=== PATIENT | male | born 1970 | race Caucasian/White ===

== ENCOUNTER → 2024-06-16 13:56 | Outpatient (BNVA) | payer MEDICAID, SELFPAY | PROVIDERS: Visit Provider Student in an Organized Health Care Education/Training Program | DX: M75.101 Unspecified rotator cuff tear or rupture of right shoulder, not specified as traumatic (principal); M75.41 Impingement syndrome of right shoulder; M75.21 Bicipital tendinitis, right shoulder; S49.91XA Unspecified injury of right shoulder and upper arm, initial encounter; M19.019 Primary osteoarthritis, unspecified shoulder; X50.9XXA Other and unspecified overexertion or strenuous movements or postures, initial encounter | CPT/HCPCS: 73030 ==

== ENCOUNTER 2024-07-20 11:21 | Day surgery (SDC) | payer MEDICAID, SELFPAY ==
[2024-07-20] VITALS (10 sets, daily range): BP systolic 160–178; BP diastolic 88–107; PULSE 70–90; RESP 16–18; TEMP 36.1; O2SAT 93–98; BMI 34.4
[2024-07-20 12:10] LABS: Glucose Point of Care 147 mg/dL (70-110)
[2024-07-20] MEDS: ketorolac 30 mg/mL INJ IVP (12:10)
[2024-07-20] MEDS: sodium chloride 0.9% 1,000 ML 30 ML IV (12:10)
[2024-07-20] MEDS: acetaminophen 1,000 MG/100 ML PIGGYBACK 400 MG IV (12:10)
[2024-07-20] MEDS: scopolamine 1 mg PATCH 1 PATCH TRANSDERMA (12:11)
--- NOTE | 2024-07-20 12:54 | PC.NURSE ---
1240, time out performed, Patient placed on 2lnc and placed on minitor using ultrasound guidance right shoulder block performed, 20 ml 0.5% ropivicaine injected.patient tolerated well.
--- NOTE | 2024-07-20 12:54 | ANES.PREANE2 ---
Pre-Anesthetic Assessment Height/Weight: Height 1.7 m Weight 99.79 kg BP O2 Del Method 165/107 Room Air 07/20/24 12:11 07/20/24 12:01 Operation Date: 07/20/24 13:10 Proposed Procedures p shoulder diagnostic and surgical arthroscopy(Right) - Max Victor, DO s Subacromial Decompression(Right) - Max Whatleyatt DO s AC Joint Resection(Right) - Max Whatleyatt DO s Rotator Cuff Repair - Arthroscopy vs debridement(Right) - Max Whatleyatt DO s Possible biceps tenotomy versus tenodesis(Right) - Max Victor DO Familial anesthetic complications: None Was Beta Sonya taken within 24 hours: N/A Was Clonidine taken within 24 hours: N/A Last intake: Intake Last Liquid Date 07/19/24 Last Liquid Time 22:00 Last Solid Date 07/19/24 Last Solid Time 19:30 Social No alcohol and No tobacco Exam alert, oriented x 3, clear to auscultation bilaterally and regular rate & rhythm Airway Mallampati: Class I Dentition: other (none) CV/HEM Hypertension Metabolic Diabetes Mellitus and Hyperlipidemia Anesthetic Plan ASA status: 3 Anesthesia: General and Regional (specify below) Risk of > 500 ml blood loss (7ml/kg in children): No Medications/Allergies Home Medications ?Medication ?Instructions ?Recorded ?Confirmed ?Last Taken ?Type aspirin 81 mg tablet,delayed 81 mg PO DAILY 06/16/24 07/16/24 07/18/24 History release atorvastatin 20 mg tablet (Lipitor) 20 mg PO DAILY 06/16/24 07/16/24 07/18/24 History griseofulvin microsize 500 mg 500 mg PO Q12H 06/16/24 07/16/24 07/18/24 History tablet lisinopril 10 mg tablet 10 mg PO DAILY 06/16/24 07/16/24 07/11/24 History metformin 500 mg tablet 500 mg PO DAILY 06/16/24 07/16/24 07/18/24 History hydrocodone 5 mg-acetaminophen 325 1 tab PO Q6H PRN pain 5 days #20 07/20/24 Unknown Rx mg tablet tabs Allergies Allergy/AdvReac Type Severity Reaction Status Date / Time codiene Allergy depression Uncoded 06/16/24 14:03 Current Medications Generic Name Dose Route Start Last Admin Trade Name Freq PRN Reason Stop Dose Admin Sodium Chloride 1,000 mls @ 30 mls/hr 07/20/24 11:45 07/20/24 12:10 Sodium Chloride 0.9% IV 07/21/24 11:44 30 mls/hr .Q24H OTILIA Administration PFSH Anesthesia Social History (Updated 06/16/24 @ 14:05 by Amairani Sutherland LPN) Smoking and tobacco/nicotine status: never used tobacco/nicotine Marital status: Data Anesthesia Cardiac Studies: No Data to Display
--- NOTE | 2024-07-20 12:54 | ANES.PROC ---
Anesthesia Procedures Procedure/Date: 07/20/24 Nerve Block ^: Nerve Block 1: Main Anesthesia: general anesthesia Time Out Performed: Yes Consent: requested by attending/covering physician, from patient, from other, risks and benefits reviewed and patient agrees to proceed Nerve block location: interscalene (R) Anesthesia monitors applied: pulse oximetry, EKG, BP cuff and oxygen Nerve block position: semi sitting Anesthetic Used: ropivicaine 0.5% (20 ml) and with decadron (4 mg) Ultrasound used to: recognize landmarks, visualize and ID brachial plexus, in supraclavicular region and visualize and ID interscalene groove Nerve Stimulator Used?: No Interscalene/Femoral BLK: 2 stimuplex 22 g needle used for position and inplane approach, visualize local anesthetic spread and no vascular puncture identified Patient Tolerated Procedure: well Complications: none
--- NOTE | 2024-07-20 13:16 | W.PM.OPSFHP ---
Same Day Surgery H&P Indication for Procedure/HPI DATE OF PROCEDURE: July 20, 2024 CHIEF COMPLAINT/INDICATIONFOR SURGICAL PROCEDURE: Right shoulder rotator cuff tear, AC joint arthritis rotator cuff impingement, biceps tendinitis PREOP DIAGNOSIS: Right shoulder rotator cuff tear, AC joint arthritis rotator cuff impingeme PLANNED PROCEDURE: Operation Date: 07/20/24 13:10 Proposed Procedures p shoulder diagnostic and surgical arthroscopy(Right) - Max Victor, DO s Subacromial Decompression(Right) - Max Victor, DO s AC Joint Resection(Right) - Max Victor, DO s Rotator Cuff Repair - Arthroscopy vs debridement(Right) - Max Victor, DO s Possible biceps tenotomy versus tenodesis(Right) - Max Victor, DO Medications/Allergies* Home Medications ?Medication ?Instructions ?Recorded ?Confirmed ?Type aspirin 81 mg tablet,delayed 81 mg PO DAILY 06/16/24 07/16/24 History release atorvastatin 20 mg tablet (Lipitor) 20 mg PO DAILY 06/16/24 07/16/24 History griseofulvin microsize 500 mg 500 mg PO Q12H 06/16/24 07/16/24 History tablet lisinopril 10 mg tablet 10 mg PO DAILY 06/16/24 07/16/24 History metformin 500 mg tablet 500 mg PO DAILY 06/16/24 07/16/24 History Allergies/Adverse Reactions Allergy/AdvReac Type Severity Reaction Status Date / Time codiene Allergy depression Uncoded 06/16/24 14:03 Current Medications: Generic Name Dose Route Start Last Admin Trade Name Freq PRN Reason Stop Dose Admin Sodium Chloride 1,000 mls @ 30 mls/hr 07/20/24 11:45 07/20/24 12:10 Sodium Chloride 0.9% IV 07/21/24 11:44 30 mls/hr .Q24H OTILIA Administration Pertinent History/Comorbid Conditions* Social History Smoking and tobacco/nicotine status: never used tobacco/nicotine Marital status: Pertinent Exam Findings alert, oriented x 3, operative site marked and procedure specific exam findings Please refer to detailed orthopedic examination on 06/16/2024 listed below: RIght Shoulder exam: C-Spine ROM: Normal Spurlings: Negative Tender AC with biceps groove No posterior TTP ROM: Passive 180 degrees Active 90 degrees TTP Internal Rotation External Rotation pain 4/5 strength O'Briens: Jobes: Positive with weakness 4/5 [place]ima Impingement:Positive Speeds Test: Positive Crossover/Neers test Positive Positive drop arm test Negative Tinels at the wrist Negative Median Compression test Recommendations Risks and benefits of procedure reviewed and Patient/family agree to proceed Surgery/Procedure today Other Plans: Plan to proceed to the OR today for right shoulder diagnostic and surgical arthroscopy with subacromial decompression, AC joint resection, rotator cuff debridement versus repair, possible biceps tenotomy versus tenodesis. Patient once again understands the ins and outs procedure the risk benefits complication alternatives surgery and through shared decision make elects proceed with surgical invention. All questions answered at this time. Coding Level of Care Code Acute Code for Chg Fwd
[2024-07-20] MEDS: ceFAZolin 2,000 MG in sodium chloride 0.9% (plus) 50 ML 100 MG IV (13:33)
[2024-07-20] MEDS: EPINEPHrine 1 mg/mL INJ 2 MG XX (14:21)
--- NOTE | 2024-07-20 15:15 | P.BOP_ITS ---
Date of Procedure: 07/20/2024 Surgeon: Max Victor DO Director [facility](s): Karthik Victor PA-C Procedure(s) performed: Right shoulder diagnostic and surgical arthroscopy with rotator cuff repair (medium?large) Right shoulder diagnostic and surgical arthroscopy with biceps tenodesis Right shoulder diagnostic and surgical arthroscopy with labral debridement Right shoulder diagnostic and surgical arthroscopy with subacromial decompression (bursectomy/acromioplasty) Right shoulder diagnostic and surgical arthroscopy with AC joint resection (distal clavicle excision) Findings of the procedure(s): Patient at this point time found to have a medium large rotator cuff tear as well as biceps tendinitis inflammation tearing as well as unstable bicep tendon anchor underwent bicep tenodesis and rotator cuff repair also underwent subacromial decompression AC resection as well as labral debridement. Patient tolerated procedure well without issues or complications taken back to PACU stable condition. Estimated blood loss: 10 mL Specimen(s) removed: None Post-operative diagnosis: Right shoulder rotator cuff tear (medium?large), biceps tendinitis/superior labral tearing and unstable bicep anchor, circumferential labral fraying, subacromial impingement, AC joint arthritis
--- NOTE | 2024-07-20 15:17 | P.OP_ITS ---
Operative Report Date of procedure: July 20, 2024 Surgeon: Max Victor DO Youth Liaison Officer: Karthik Victor PA-C: PA was necessary for assistance in this case with shoulder positioning to execute the procedure, assistance with instrumentation, as well as implant fixation when necessary, assist with wound closure and dressing application. Procedure: Preoperative diagnosis: Right shoulder rotator cuff tear, AC joint arthritis rotator cuff impingement, biceps tendinitis Post-op diagnosis: Right shoulder rotator cuff tear (medium?large), biceps tendinitis/superior labral tearing and unstable bicep anchor, circumferential labral fraying, subacromial impingement, AC joint arthritis Procedure done: Right shoulder diagnostic and surgical arthroscopy with rotator cuff repair (medium?large) Right shoulder diagnostic and surgical arthroscopy with biceps tenodesis Right shoulder diagnostic and surgical arthroscopy with labral debridement Right shoulder diagnostic and surgical arthroscopy with subacromial decompression (bursectomy/acromioplasty) Right shoulder diagnostic and surgical arthroscopy with AC joint resection (distal clavicle excision) Surgeon: Max Victor DO Estimated blood loss: 10mL IV fluids: See anesthesia record Implants: Arthrex 4.75 loop and tack biceps tenodesis kit Arthrex 4.75 speed bridge implant system with scorpion for rotator cuff repair Complications: None Condition: stable Disposition: same day Brief History: Patient been seen and worked up in the outpatient setting for?right?shoulder?pain.? Pt had an MRI which showed findings of Medium in size retracted full-thickness rotator cuff tear as well as subacromial impingement. Also x-rays demonstrate AC joint arthritis. Patient's failed conservative treatment and has weakness.? We talked about treatment options far as nonoperative and operative intervention. We talked about risk benefits complication alternatives surgical nonsurgical treatment options.? Understanding risk of surgery he agrees to proceed with surgical intervention. Please refer to previous office visit for detailed discussion about treatment options as patient does have rotator cuff tear rotator cuff impingement syndrome as well as right shoulder biceps tendinitis and AC joint arthritis. All questions have been answered at this time.? Patient elects proceed with surgery and consent obtained in the preoperative holding area for Right shoulder diagnostic and surgical arthroscopy, Subacromial Decompression, Acromioclavicular Joint Resection,Rotator Cuff Repair versus Debridement, Possible biceps tenotomy versus tenodesis. Procedure: Patient seen evaluated in the preoperative holding area.? Consent reviewed and signed with patient.? Once again reviewed patient's MRI results as well as? planned surgical intervention.? Correct extremity marked.? Patient seen evaluated by anesthesia department received regional anesthesia.? Once ready for surgery was taken back to the operative suite.? Patient then subsequently underwent anesthesia per the anesthesia department was transported onto the OR table.? Patient was then placed into a lateral decubitus position with a beanbag and was appropriately secured to the bed.? All bony prominences well-padded.? Patient then had the?right?upper extremity was then prepped and draped in standard orthopedic fashion.? Patient received appropriate preoperative antibiotics.? Final timeout performed. The?right?upper extremity was then held in hanging from traction utilizing sterile technique.? Next started with standard diagnostic and surgical arthroscopy with posterior portal position introduced arthroscope into the glenohumeral joint.? Visualized the glenohumeral joint I then introduced a spinal needle within the rotator cuff interval to confirm appropriate anterior portal placement.? Once this was confirmed I then made my small incision and then introduced my arthroscopic shaver into the glenohumeral joint.? After flushing the joint fluid, was clearly evident patient had biceps tendon tearing/tendinitis as well as Superior labral tear. Patient had appreciable unstable biceps anchor most pronounced in the superior labrum. Given there appears to be healthy intra-articular tendon plan was for an intra-articular biceps tenodesis at the superior portion as it enters the intertubercular groove. Thermal wand introduced into the rotator interval. I then release of the rotator interval to have appropriate visualization and the ability to perform biceps tenodesis. At this point I established a purple passport cannula which was introduced. Next I performed an Arthrex loop and tack biceps tenodesis. Passer was then made around the tendon luggage tag stitch around and then thru the tendon for Arthrex standard protocol, I then utilized a thermal wand to release the biceps tendon at the anchor to perform with tenotomy. I then loaded with suture onto an Arthrex 4.75 swivel lock suture anchor. A punch was then placed in appropriate position at the entry point into the intertubercular groove just superior to the subscapularis tendon. Punch was then introduced to the appropriate depth. The suture loaded on the swivel lock was then advanced held under appropriate tension and shoulder lock anchor was then advanced and had excellent fixation. Excess suture was then cut biceps tenodesis was complete. I then utilized a thermal wand to seal the edges of the superior labrum. Next I evaluated the subscapularis tendon which was intact and no evidence of tear. ?Next there was significant labral tearing at biceps anchor and circumferential.? ? I then subsequently utilized a a arthroscopic shaver and thermal wand to perform a labral debridement.? This point time I then visualized the glenohumeral joint.? The glenohumeral joint was found to have grade 1-2? chondromalacia throughout.? Axillary pouch was free of loose bodies from viewing the posterior portal.? Next a visualized the rotator cuff superiorly and there was found to be a medium size tearing of the supraspinatus tendon.? I utilized a spinal needle to john this location.?? This completed my work within the glenohumeral joint all fluid was suctioned free of the joint.? ?Next I reintroduced the arthroscope posteriorly.? And went to the subacromial space.? I established my lateral working portal at the site of which my spinal needle was marking of the rotator cuff tear.? Thermal wand was then introduced laterally and then I subsequently performed extensive bursectomy of the subacromial space.? Patient had a large anterior bone spur.? At this point time I proceeded with my AC joint resection thermal wand was used and track to the anterior edge of the acromion and then tracked all the way to the AC joint.? Once identified the AC joint this was very arthritic in nature.? Thermal wand was placed anteriorly to establish appropriate plane for AC joint resection.? Once appropriate margins and anterior inferior and anterior capsule was released I then introduced arthroscopic shaver and a bur and performed AC joint resection of both the acromion to cope plane at the AC joint and a distal clavicle resection was then performed totaling 1 cm in size and was confirmed.? This completed my AC joint resection and I then introduced the arthroscopic shaver laterally while continuing to view posteriorly.? I then performed an acromioplasty to complete my subacromial decompression prior to fixing the rotator cuff tear.? Next the arthroscopic shaver was then used previous spinal needle spot that is marked the medium size hold the rotator cuff. Patient was found to have a medium even the large size rotator cuff tear. This was of the supraspinatus rotator cuff tendon. This appears this would be amendable for a speed bridge double row technique. We then subsequently opened up Arthrex double row speed bridge implant system with 4.75 swivel locks to medial row anchor and a 2 lateral row anchor fixation. At this point in time and then introduced a shaver and ring curette to debride the rotator cuff footprint and decorticate the footprint in preparation for repair. Next I then made a small percutaneous incision first marking with a spinal needle via man's perpendicular angle directly over the medial row right off the articular margin for my medial row anchor positioning. Once SSI with this placement small stab incision and blunt probe and then subsequently inserted the punch. I then subsequently punched and placed two 4.75 swivel lock anchors 1 anteriorly and 1 posteriorly to span the width of the tear. These both had this wedged Arthrex suture tapes which were then spliced to correlate to 4 passes throughout the rotator cuff. At this point time I sequentially rasped past and then docked these out of the anterior portal utilizing an Arthrex scorpion these were passed sequential fashion from anterior to posterior fashion once all were passed I then had excellent excursion of this rotator cuff and subsequently grabbed sutures 1 and 3 loaded these on a 4.75 swivel lock and subsequently utilizing my thermal wand cleared the lateral aspect of the tuberosity for my lateral row anchor positioning once this was marked I then subsequently punched and then placed and secured a 4.75 swivel lock under satisfactory tension and pulled the anterior aspect of the rotator cuff complet torey down and over the prepped bone bed of the tuberosity back to its original origin. Next I then loaded the 2 and 4 sutures onto 4.75 swivel lock and then subsequently utilized punch and secured under appropriate tension on the 4.75 swivel lock from a posterior lateral anchor. At this point in time I then took the shoulder through range of motion and there was no evidence of failure the entire aspect of the rotator cuff now moved as a unit with the repair in place. This had excellent fixation and moved as a unit. As a result all excess sutures were then cut with arthroscopic suture cutter. Repair was found to be satisfactory?shoulder?was taken through range of motion and the repair moved as a unit with no evidence of loss of fixation. ?I then switched the arthroscope to the lateral portal to confirm this tension- free repair.? I took the?shoulder?through range of motion and the rotator cuff repair was stable and moved as a unit. ?Next I then introduced the arthroscopic shaver posteriorly to complete my subacromial decompression appropriate complaining all the way up to the lateral edge of the acromion.? This completed the surgery.? All fluid was suctioned from the?shoulder.? All instruments were removed.? The lateral incision was then closed with nylon stitches.? As well as the portal sites closed with portal nylon stitches.? Xeroform 4 x 4's ABD and tape was then applied to the?right?shoulder?and was placed into a?shoulder?abduction pillow sling for rotator cuff repair.? Patient was then awakened from anesthesia and then taken back to PACU in stable condition.? Patient tolerated procedure without any issues. Disposition: Patient taken back in stable condition recovering well.? Dressings on in place clean dry and intact.? Will be nonweightbearing to the?right?upper extremity.? Follow rotator cuff repair protocol.? Patient to follow-up with Ortho in the office in 2 weeks.? Patient will receive appropriate discharge instruction as well as pain medication postoperatively.? All questions answered.? We will contact the office for any questions or concerns.
--- NOTE | 2024-07-20 15:39 | PM.PACU ---
PACU note Narrative: Patient is a 53-year-old male just underwent a right shoulder diagnosed surgical arthroscopy. Patient transferred to PACU in stable condition. Pain is well controlled. shoulder Dressing on , dry and in place. Patient's operative arm is in a shoulder immobilizer. Patient is somnolent but arousable. Patient's fingers are warm with good perfusion. Normal cap refill under 2 seconds. Unable to assess further range of motion in arm due to sling. Patient is able to wiggle fingers. Unable to assess sensation due to residual anesthetic. Exam: somnolent, arousable Disposition: discharged
--- NOTE | 2024-07-20 17:49 | ANE.PACU2 ---
Inpatient post-anesthesia follow up: Airway intact: Yes Vital signs: Temperature 97 F Pulse Rate 80 Respiratory Rate 18 Blood Pressure 170/88 Pulse Oximetry 95 Oxygen Delivery Me thod Room Air Oxygen Flow Rate Fraction of Inspir ed Oxygen Hydration adequate: Yes Nausea and vomiting: No Pain level: 1 Mental status: Baseline
== END 2024-07-20 16:55 | disposition home or self-care (01) ==
PROVIDERS: PCP Family Medicine; Visit Provider Student in an Organized Health Care Education/Training Program
PROC: (CPT 29805; principal; 2024-07-20 13:10)
PROC: (CPT 29826; 2024-07-20 13:10)
PROC: 0RSG0ZZ Reposition Right Acromioclavicular Joint, Open Approach (ICD-10-PCS; CPT 29827; 2024-07-20 13:10)
PROC: (CPT 29827; 2024-07-20 13:10)
PROC: (CPT 24310; 2024-07-20 13:10)
PROC: (CPT 29827; 2024-07-20 13:10)
DX: M75.101 Unspecified rotator cuff tear or rupture of right shoulder, not specified as traumatic (principal); S46.211A Strain of muscle, fascia and tendon of other parts of biceps, right arm, initial encounter; M75.21 Bicipital tendinitis, right shoulder; M75.41 Impingement syndrome of right shoulder; S43.431A Superior glenoid labrum lesion of right shoulder, initial encounter; X58.XXXA Exposure to other specified factors, initial encounter; M19.011 Primary osteoarthritis, right shoulder; I10 Essential (primary) hypertension; M94.211 Chondromalacia, right shoulder; E11.9 Type 2 diabetes mellitus without complications; E78.5 Hyperlipidemia, unspecified; Z79.899 Other long term (current) drug therapy; Z79.82 Long term (current) use of aspirin; Z79.84 Long term (current) use of oral hypoglycemic drugs; Z88.5 Allergy status to narcotic agent
CPT/HCPCS: 29827; 29826; 29824; 29822; 36416; 82962; C1713; J0131; J0171; J0330; J0690; J1100; J1885; J2250; J2405; J2704; J2710; J2795; J3010; J3490; J7030; J9999

== ENCOUNTER 2024-10-20 05:00 | Outpatient (RCR) | payer MEDICAID, SELFPAY | END 2024-11-19 23:59 | disposition home or self-care (01) | LOC: WPT 05:00 | PROVIDERS: Visit Provider Student in an Organized Health Care Education/Training Program | DX: M25.511 Pain in right shoulder (principal); G89.29 Other chronic pain | CPT/HCPCS: 97110; 97161; 97530 ==

== ENCOUNTER 2024-11-20 05:00 | Outpatient (RCR) | payer MEDICAID, SELFPAY | END 2024-12-20 23:59 | disposition home or self-care (01) | LOC: WPT 05:00 | PROVIDERS: PCP Nurse Practitioner Family; Visit Provider Student in an Organized Health Care Education/Training Program | DX: M25.511 Pain in right shoulder (principal); G89.29 Other chronic pain | CPT/HCPCS: 97110; 97530 ==

== ENCOUNTER 2024-12-21 05:00 | Outpatient (RCR) | payer MEDICAID, SELFPAY | END 2025-01-19 23:59 | disposition home or self-care (01) | LOC: WPT 05:00 | PROVIDERS: PCP Nurse Practitioner Family; Visit Provider Student in an Organized Health Care Education/Training Program | DX: M25.511 Pain in right shoulder (principal); G89.29 Other chronic pain | CPT/HCPCS: 97110; 97530 ==

== ENCOUNTER → 2024-12-30 09:55 | Outpatient (BNVA) | payer MEDICAID, SELFPAY | PROVIDERS: PCP Nurse Practitioner Family; Visit Provider Physician Assistant | DX: Z98.890 Other specified postprocedural states (principal) | CPT/HCPCS: 73030 ==